=== PATIENT | female | born 2000 | race Two or more races ===

== ENCOUNTER 2025-01-12 05:11 | Emergency (ER) | payer OTHER ==
[~2025-01-12] VITALS: Ht 160 cm; Wt 68.0 kg
[2025-01-12 05:30] VITALS: O2SAT 98
[2025-01-12] MEDS ORDERED: NAPR-1176 MT (05:39)
[2025-01-12] MEDS ORDERED: CEPH500T MT (05:39)
[2025-01-12] MEDS ORDERED: ACETAMINOPHEN 500MG TABLET PO ONE (05:45)
[2025-01-12 05:52] VITALS: BP 121/83; PULSE 99; RESP 18; TEMP 36.5; O2SAT 100
== END 2025-01-12 05:54 | disposition home or self-care (01) ==
LOC: ER 05:11
DX: K04.7 Periapical abscess without sinus (principal); Z79.1 Long term (current) use of non-steroidal anti-inflammatories (NSAID); Z88.0 Allergy status to penicillin; Z79.899 Other long term (current) drug therapy
CPT/HCPCS: 99283